=== PATIENT | male | born 1990 | race Two or more races ===

== ENCOUNTER 2021-03-08 11:04 | Emergency (ER) | payer SELFPAY ==
[~2021-03-08] VITALS: Ht 170.2 cm; Wt 63.5 kg
[2021-03-08 11:21] VITALS: BP 128/80
== END 2021-03-08 14:30 | disposition home or self-care (01) ==
LOC: EDBD 11:04 → ER 11:04
DX: R53.1 Weakness (principal); R00.0 Tachycardia, unspecified
CPT/HCPCS: 93005